=== PATIENT | female | born 1990 | race Caucasian/White ===

== ENCOUNTER 2020-12-03 00:34 | Emergency (ER) | payer OTHER, SELFPAY ==
--- NOTE | ~2020-12-03 | XR_ITS ---
EXAMINATION: XR CHEST CLINICAL INFORMATION: Cough, shortness of breath COMPARISON: None TECHNIQUE: 2 views of the chest were obtained. FINDINGS: The lungs are clear with no focal consolidation. No evidence of pneumothorax, pulmonary edema, or pleural effusions. The cardiomediastinal silhouette is unremarkable. No acute osseous findings. XR/XR chest 2V IMPRESSION: No acute cardiopulmonary findings.
--- NOTE | 2020-12-03 00:45 | ED_ITS ---
HPI - URI/Sore Throat General Stated Complaint: constant phlegm, can't smell Time Seen by Provider: 12/03/20 00:36 Source: patient Mode of arrival: ambulatory History of Present Illness HPI Narrative: 30-year-old female presenting to the ED complaining of nasal congestion/rhinorrhea, productive cough, sore throat, and loss of smell since yesterday. Denies fever, chills, ear pain, chest pain, shortness of breath, recent travel, COVID-19 exposure MD elicited complaint: rhinorrhea and nasal congestion Related Data Previous Rx's Medication Instructions Recorded acetaminophen [Tylenol Extra 500 mg PO Q6H PRN #20 tab 12/03/20 Strength] albuterol sulfate 2 puff INHALATION Q4-6H PRN #6.7 g 12/03/20 benzonatate [Tessalon Perles] 100 mg PO TID PRN #14 cap 12/03/20 fluticasone propionate [Flonase 2 spray INTRANASAL DAILY #16 g 12/03/20 Allergy Relief] Allergies Allergy/AdvReac Type Severity Reaction Status Date / Time From AMBIEN Allergy Unknown DIZZINESS Uncoded 02/08/20 18:17 Review of Systems Review of Systems: Constitutional: No Fever, No Chills ENT/Mouth: No Ear Pain, + Nasal Congestion, No Sinus Pain, No Hoarseness, + sore throat, + Rhinorrhea, No Swallowing Difficulty Cardiovascular: No Chest Pain, No SOB Respiratory: + Cough, + Sputum, No Wheezing Gastrointestinal: No Nausea, No Vomiting, No Abdominal pain Musculoskeletal: No joint pain, No Myalgias, No Joint Swelling Skin: No Skin Lesions, No rash Neuro: No Weakness Yes all other systems are reviewed and are negative [facility] Past Medical History Attestation statement: The following information was validated with the patient. Physical Exam Const: General: cooperative, healthy appearing and no acute distress Orientation/consciousness: patient oriented x3 Limitations: no limitations HENMT: Other: Nasal congestion noted on exam Head: Yes normal to inspection Ears: hearing grossly normal bilaterally Face and sinus: Yes normal facial exam Mouth: Normal oral and palatal mucosa present Throat: Yes posterior oropharynx normal, Yes tonsils normal, Yes uvula midline, No abnormal tonsil and No peritonsillar mass Eyes: General: appearance normal, both eyes and all related structures EOM: EOMs intact bilaterally Neck: Neck: Yes normal visual inspection Resp: Effort & Inspection: normal respiratory effort Auscultation: clear to auscultation bilaterally, no rales, no rhonchi and no wheezes Cardio: Rate: regular rate Heart sounds: S1 normal heart sound present and S2 normal heart sound present GI: Inspection: Yes normal to inspection Skin: Rashes: no rashes Wounds: no wounds Neuro: General: patient oriented x3 Gait exam (Neuro): Normal gait present Extrem: General: Yes normal to inspection Course Course Course Narrative: --ED care transferred to [facility] pending CXR and COVID-19 results MDM - URI/Sore Throat MDM Narrative Medical decision making narrative: 30-year-old female presenting to the ED complaining of nasal congestion/rhinorrhea, productive cough, sore throat, and loss of smell since yesterday. On exam low-grade temp of 99?, tachycardic, nontoxic appearing, lungs CTA. Concern for viral syndrome/COVID-19 vs pneumonia. Low concern for severe sepsis or ACS/PE Plan: CXR, COVID-19 testing Discharge Plan Discharge Clinical Impression: Acute viral syndrome Instructions: Viral Syndrome (ED) Additional Instructions: Use albuterol inhaler at home as needed for shortness of breath/wheezing Tessalon Perles for cough Use Flonase nasal decongestion spray Follow up with her doctor Rest, stay hydrated, if her symptoms persist or worsen, you have fever unresolved with medications, develop constant worsening shortness of breath or chest pain please return to the ED Prescriptions: New acetaminophen [Tylenol Extra Strength] 500 mg tablet 500 mg PO Q6H PRN (Reason: pain or fever) Qty: 20 RF: 0 benzonatate [Tessalon Perles] 100 mg capsule 100 mg PO TID PRN (Reason: cough) Qty: 14 RF: 0 albuterol sulfate 90 mcg/actuation HFA aerosol inhaler 2 puff inhalation Q4-6H PRN (Reason: shortness of breath or wheezing) Qty: 6.7 RF: 0 fluticasone propionate [Flonase Allergy Relief] 50 mcg/actuation spray,suspension 2 spray intranasal DAILY Qty: 16 RF: 0 Referrals: Timur Chavez MD [Primary Care Provider] - 2 days
[2020-12-03] MEDS: Acetaminophen 325 MG TABLET 650 MG PO (00:53)
[2020-12-03 00:55] VITALS: BP 143/95; PULSE 119; RESP 18; TEMP 37.2; O2SAT 98; BMI 28.7
[2020-12-03 01:18] LABS: COVID-19 Test Negative (Negative); IDNOW Serial# 9DD0AD1C
[2020-12-03 01:57] VITALS: PULSE 104
== END 2020-12-03 02:14 | disposition home or self-care (01) ==
PROVIDERS: Physician Assistant; Emergency Provider Emergency Medicine; PCP Internal Medicine
DX: B34.9 Viral infection, unspecified (principal); J02.9 Acute pharyngitis, unspecified; Z20.822 Contact with and (suspected) exposure to COVID-19
CPT/HCPCS: 36415; 71046; 87635; 99283